=== PATIENT | male | born 1995 | race Caucasian/White ===

== ENCOUNTER 2016-09-12 15:48 | Inpatient (IN) | payer OTHER ==
[~2016-09-12] VITALS: Ht 182.9 cm; Wt 110.0 kg
[2016-09-12] MEDS ORDERED: SODIUM CHLOR 0.9% 1000 ML INJ 1,000 ML IV SCH (15:55)
[2016-09-12 15:57] VITALS: BP 126/64; PULSE 78; RESP 16; TEMP 98.2; O2SAT 100
[2016-09-12] MEDS ORDERED: SODIUM CHLORIDE 0.9% FLUSH 5 ML FLUSH IVF PRN ×2 (16:00→19:00)
[2016-09-12] MEDS ORDERED: DIPHTH/TETANUS/ACEL PERTUSSIS (BOOSTER) 0.5 ML VIAL/PFS IM ONE (16:00)
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
[2016-09-12 16:37] LABS: AUTOMATED NEUTROPHIL # 20.7 TH/MM3 (1.8-7.7); BASOPHIL # 0.1 TH/MM3 (0-0.2); BASOPHIL % 0.4 % (0.0-2.0); EOSINOPHIL # 0.2 TH/MM3 (0-0.4); EOSINOPHIL % 0.7 % (0.0-4.0); HEMO FLAGS DIFF FINAL; LYMPH % 10.4 % (9.0-44.0); LYMPHOCYTE # 2.6 TH/MM3 (1.0-4.8); MEAN CELL VOLUME 88.9 FL (80.0-100.0); MEAN CORPUSCULAR HEMOGLOBIN 29.8 PG (27.0-34.0); MEAN CORPUSCULAR HGB CONC 33.5 % (32.0-36.0); MONO % 4.4 % (0.0-8.0); NEUT % 84.1 % (16.0-70.0); PLATELET COUNT 306 TH/MM3 (150-450); RED BLOOD COUNT 4.84 MIL/MM3 (4.50-5.90); RED CELL DISTRIBUTION WIDTH 12.7 % (11.6-17.2); WHITE BLOOD COUNT 24.6 TH/MM3 (4.0-11.0)
[2016-09-12 16:52] LABS: APTT (PATIENT) 21.9 SEC (24.3-30.1); PROTHROMBIN TIME - PATIENT 11.6 SEC (9.8-11.6)
[2016-09-12 17:01] LABS: ANION GAP 8 MEQ/L (5-15); BLOOD UREA NITROGEN 9 MG/DL (7-18); CHLORIDE 105 MEQ/L (98-107); GLOMERULAR FILTRATION RATE 107 ML/MIN (>89); POTASSIUM 3.3 MEQ/L (3.5-5.1); SODIUM (NA) 140 MEQ/L (136-145)
[2016-09-12 17:31] VITALS: BP 130/66; PULSE 79; RESP 16; O2SAT 98
[2016-09-12] MEDS ORDERED: IOHEXOL 350 MG/ML 10 ML VIAL (for RAD DIAG) IV ONE (18:03)
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
[2016-09-12] MEDS ORDERED: MORPHINE SULFATE 4 MG/ML INJ IV ONE (18:30)
[2016-09-12] MEDS ORDERED: ONDANSETRON HCL 4 MG/2 ML VIAL IVP ONE (18:30)
[2016-09-12] MEDS ORDERED: ONDANSETRON HCL 4 MG/2 ML VIAL IV PRN (19:00)
[2016-09-12 19:08] VITALS: BP 127/62; PULSE 93; RESP 18; O2SAT 98
[2016-09-12] MEDS: SODIUM CHLOR 0.9% 1000 ML INJ 1,000 ML IV SCH (19:35)
[2016-09-12] MEDS: SODIUM CHLORIDE 0.9% FLUSH 5 ML FLUSH IVF SCH (19:36)
[2016-09-12 19:47] VITALS: O2SAT 96
[2016-09-13 00:20] VITALS: BP 140/80; PULSE 85; RESP 16; TEMP 97.4; O2SAT 100
[2016-09-13 01:15] VITALS: PULSE 83
[2016-09-13] MEDS: SODIUM CHLOR 0.9% 1000 ML INJ 1,000 ML IV SCH (05:00)
[2016-09-13 05:09] VITALS: BP 132/69; PULSE 105; RESP 17; TEMP 97.5; O2SAT 98
[2016-09-13 06:51] LABS: AUTOMATED NEUTROPHIL # 14.2 TH/MM3 (1.8-7.7); BASOPHIL % 0.1 % (0.0-2.0); EOSINOPHIL % 0.1 % (0.0-4.0); HEMATOCRIT 40.8 % (39.0-51.0); HEMO FLAGS DIFF FINAL; LYMPH % 16.1 % (9.0-44.0); MEAN CELL VOLUME 88.2 FL (80.0-100.0); MONO % 7.6 % (0.0-8.0); NEUT % 76.1 % (16.0-70.0); PLATELET COUNT 271 TH/MM3 (150-450); RED BLOOD COUNT 4.62 MIL/MM3 (4.50-5.90); RED CELL DISTRIBUTION WIDTH 13.2 % (11.6-17.2); WHITE BLOOD COUNT 18.6 TH/MM3 (4.0-11.0)
[2016-09-13] MEDS ORDERED: SODIUM CHLOR 0.9% 1000 ML INJ 1,000 ML IV SCH (07:17)
[2016-09-13] MEDS ORDERED: ENALAPRILAT 1.25 MG/ML VIAL IV PRN (07:30)
[2016-09-13] MEDS ORDERED: ACETAMINOPHEN 325 MG TAB PO PRN (07:30)
[2016-09-13] MEDS ORDERED: SODIUM CHLORIDE 0.9% FLUSH 5 ML FLUSH IVF PRN (07:30)
[2016-09-13 08:00] VITALS: BP 144/76; PULSE 84; RESP 19; TEMP 98.5; O2SAT 100
[2016-09-13] MEDS ORDERED: DOCUSATE SODIUM 50 MG/SENNA 8.6 MG TAB PO SCH (09:00)
[2016-09-13] MEDS: SODIUM CHLORIDE 0.9% FLUSH 5 ML FLUSH IVF SCH (09:00)
[2016-09-13 09:32] VITALS: O2SAT 96
[2016-09-13] MEDS ORDERED: SENN1TAB PO (10:09)
[2016-09-13] MEDS ORDERED: MILKSUS PO (10:09)
[2016-09-13 12:00] VITALS: BP 146/75; PULSE 70; RESP 19; TEMP 98.6; O2SAT 94
[2016-09-13] MEDS ORDERED: PERC5TAB12 PO (13:23)
[2016-09-13] MEDS ORDERED: MAGNESIUM HYDROXIDE SUSP 30 ML CUP PO SCH (21:00)
[2016-09-13] MEDS ORDERED: FAMOTIDINE 20 MG TAB PO SCH (21:00)
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
== END 2016-09-13 15:09 | disposition home or self-care (01) | DRG 90 ==
LOC: NEPC 15:48 → NEDA 18:39 → N06B 09-13 00:44
PROVIDERS: ADMIT Surgery; ATTEND Surgery
DX: S06.0X1A Concussion with loss of consciousness of 30 minutes or less, initial encounter (principal); R56.9 Unspecified convulsions; S42.021A Displaced fracture of shaft of right clavicle, initial encounter for closed fracture; V27.4XXA Motorcycle driver injured in collision with fixed or stationary object in traffic accident, initial encounter; Y93.89 Activity, other specified; Y92.410 Unspecified street and highway as the place of occurrence of the external cause
CPT/HCPCS: 29240; 70450; 71010; 71260; 72125; 72170; 73030; 74177; 80048; 80320; 85025; 85610; 85730; 86850; 86900; 86901; 90471; 90715; 96361; 96374; 96375; J2270; J2405; J7030; Q9967